=== PATIENT | male | born 1995 | race Hispanic/Latino ===

== ENCOUNTER 2025-10-08 13:24 | Emergency (ER) | payer SELFPAY ==
[~2025-10-08] VITALS: Ht 175.3 cm; Wt 73.0 kg
[2025-10-08 13:26] VITALS: BP 134/83; PULSE 61; RESP 18; TEMP 98
[2025-10-08] MEDS ORDERED: CLIN-141 PO (14:19)
--- NOTE | 2025-10-08 14:22 | ERN ---
ED Note History of Present Illness Stated Complaint: CYST ON NECK Chief Complaint: Neck Pain Time Seen by MD: 13:27 Time Seen by Midlevel: 13:27 Dictation: The patient is a 30-year-old male with a past medical history who presents to the emergency department with complaints cyst to the back of his neck. Patient reports he had it for one month but it started to bother him a week ago. Denies any fevers. Denies any injury or insect bite. Allergies: Coded Allergies: No Known Drug Allergies (Unverified Allergy, Unknown, 10/08/25) Past Medical History Past Medical History: No Pertinent History Surgical History: None RN Note Reviewed/Agreed w/PFSH: Yes Review of System Dictation Constitutional: Negative for fever,chills, and weight loss Eyes: Negative for injury, pain,redness, and discharge ENT: Negative for injury,pain or swelling Cardiovascular: Negative for chest pain, palpitations, and edema Respiratory: Negative for shortness of breath, cough, and wheezing, Abdomen/GI: Negative for abdominal pain, nausea, vomiting, diarrhea, and constipation Back: Negative for injury and pain : Negative for injury, bleeding and discharge MS/Extremity: Negative for injury and deformity Skin: Wound lesion back of neck Neuro: Negative for headache, weakness, numbness, tingling, and seizure Psych: Negative for suicide ideation, homicidal ideation, and hallucinations Initial Vital Sign VS Vital Signs Date Time Temp Pulse Resp B/P (MAP) Pulse Ox O2 Delivery O2 Flow Rate FiO2 10/08/25 13:26 98.1 61 18 134/83 98 Room Air 0 Physical Exam Dictation Vital Signs reviewed General Appearance: Alert, oriented x 3, no acute distress, well developed, nourished. Head and Face: non-traumatic. Eyes: PERRL, pink conjunctivas, eyelid no trauma, anterior chamber with arcus senilis. Ears: Pinnas intact and no signs of trauma or erythema ear canals clear and no discharge TM no erythema Nose: No discharge, no bleeding. Oropharynx: Mouth normal, tongue pink. pharynx clear,no erythema, tonsils no exudates, no abscesses noted, mucous membrane moist Neck: Supple, non-tender, no thyromegaly, no masses, no JVD, no bruits Breast:Deferred Chest:No tenderness, no crepitus, no paradoxical movement, no retractions Lungs:Clear, well-ventilated, symmetric, no rales, no wheezing, no rhonchi, no stridor, good breath sounds bilaterally Heart: Regular rate, regular rhythm, no murmur, no gallops Vascular: no peripheral edema, Abdomen: Soft, positive bowel sounds, nondistended, no guarding, nontender, no rebound, no masses no hepatomegaly, no splenomegaly, no Jaime's sign, no hernias. Rectal: Deferred Genital: Deferred Neurological: Normal speech, motor function intact, sensory function intact Musculoskeletal: Neck nontender, full range of motion, back nontender, full range of motion, Extremities: nontender, full range of motion Skin: Color pink, dry, no turgor, no rash, no lacerations, no abrasions, no contusions.small cyst about 1.5cm in diameter, slight erythema, indurated, no drainage. Lymphatic: Deferred Results (Laboratory/Radiology) Labs Reviewed?: Yes ED Course ED Course Orders Procedure Category Date Status Time Clindamycin 150mg Cap PHA 10/08/25 Complete (Cleocin 150mg Cap 14:00 Ketorolac PHA 10/08/25 Complete Tromethamine 30mg/Ml 14:00 Current Medications Medications (Trade) Dose Ordered Sig/Chanel Route PRN Reason Start Time Stop Time Status Last Admin Dose Admin Clindamycin HCl (Cleocin 150mg Cap) 300 mg ONCE ONCE PO 10/08/25 14:00 10/08/25 14:01 DC Ketorolac Tromethamine (toRADol) 30 mg ONCE ONCE IM 10/08/25 14:00 10/08/25 14:01 DC Vital Signs Date Time Temp Pulse Resp B/P (MAP) Pulse Ox O2 Delivery O2 Flow Rate FiO2 10/08/25 13:26 98.1 61 18 134/83 98 Room Air 0 Medical Decision Making MDM The patient is a 30-year-old male with a past medical history who presents to the emergency department with complaints cyst to the back of his neck. Patient reports he had it for one month but it started to bother him a week ago. Denies any fevers. Denies any injury or insect bite. Patient with a small cyst about 1.5cm in diameter, no drainage, scant erythema. too small to drain. We will discharge patient on antibiotics and patient instructed to apply warm compress. Patient otherwise in no acute distress, non toxic appearance. Differential diagnosis: Abscess, cellulitis, cyst Need for hospitalization: Patient does not meet criteria for hospitalization. There are no social concerns with this patient. DX & DISP Disposition: Discharge Departure Impression: Primary Impression: Infected cyst of skin Condition: Stable Scripts Clindamycin HCl (Clindamycin HCl) 300 Mg Capsule 1 CAP PO QID for 10 Days, #40 CAP 0 Refills Prov: JOYCE CHOWDHURY 10/08/25 Additional Instructions: Your primary doctor in 1-2 days. Your medications as prescribed. Apply warm compress to the area. If anything worsens please return to ER. FOLLOW-UP WITH PRIMARY CARE PROVIDER IN 1 TO 2 DAYS. TAKE MEDICATIONS DIRECT ED HERE IN THE EMERGENCY ROOM. OKAY TO CONTINUE HOME MEDICATIONS UNLESS OTHERWISE DISCUSSED DURING YOUR VISIT IN THE EMERGENCY ROOM TODAY. RETURN TO YOUR NEAREST EMERGENCY ROOM IF SYMPTOMS WORSEN OR IF THERE IS NO IMPROVEMENT. CALL 911 IF YOU NEED IMMEDIATE ASSISTANCE. TAKE TYLENOL [id number] NEEDED AND IF NO CONTRAINDICATIONS ARE PRESENT. INCREASE ORAL HYDRATION. A WOUND CULTURE OR URINE CULTURE WAS ORDERED HERE IN THE EMERGENCY ROOM DEPARTMENT PLEASE FOLLOW-UP WITH PRIMARY CARE PROVIDER AND ADVISE THEM TO GET REPEAT PORTS FROM OUR FACILITY. IF YOU HAD ANY DENISE WRAP/SPLINTS THAT WERE APPLIED HERE, PLEASE DO NOT REMOVE THEM UNTIL YOU SEE YOUR PRIMARY CARE OR SPECIALTY. Referrals: NONE (PCP) Time of Disposition: 14:18 I have reviewed the case, and I agree with, Diagnosis and Plan JOYCE CHOWDHURY Oct 08, 2025 14:22
--- NOTE | 2025-10-08 14:30 | NUR ---
PT MOVED INTO [facility] AT THIS TIME
[2025-10-08] MEDS: CLINDAMYCIN 150 MG CAP PO ONE (15:30)
== END 2025-10-08 15:45 | disposition home or self-care (01) ==
LOC: EDH 13:24
DX: L72.9 Follicular cyst of the skin and subcutaneous tissue, unspecified (principal); L08.9 Local infection of the skin and subcutaneous tissue, unspecified
CPT/HCPCS: 99283; 96372; J1885